=== PATIENT | male | born 1960 | race American Indian/Alaskan Native ===

== ENCOUNTER 2017-01-06 17:54 | Emergency (ER) | payer OTHER ==
[2017-01-06 18:31] VITALS: BMI 42.0
[2017-01-06 18:33] VITALS: BP 124/74; PULSE 83; RESP 20; TEMP 98.2; O2SAT 95
[2017-01-06] MEDS ORDERED: Amoxicillin-Clav 875-125 mg Tab PO STA (18:56)
[2017-01-06] MEDS ORDERED: Tmp-Smz 800 mg-160 mg DS Tab PO STA (18:56)
--- NOTE | 2017-01-06 18:57 | ED PDOC ---
Arrival/HPI - General Chief Complaint: Finger,Hand,&Wrist Time Seen by Provider: 01/06/17 18:50 Historian: Patient - History of Present Illness Narrative History of Present Illness (Text): 01/06/17 18:57 This 56 yo male with pmh dm, htn, aleksander, presents to this this ED c/o left thumb infection x 2 days. Patient stated he accidentally cut his left finger, superficially, near thumb nail. He feels thumb got infected because of that. Patient denies fever, drainage, hand cellulitis, crushing injury, or FB exposure. Patient is able to flex and extend left thumb without deficits. Patient refused x-rays Time/Duration: Other (2 days) Quality: Aching Context: Home Past Medical History - Provider Review Nursing Documentation Reviewed: Yes - Infectious Disease Hx of Infectious Diseases: None - Tetanus Immunization Tetanus Immunization: Unknown - Cardiac Hx Hypertension: Yes - Pulmonary Hx Sleep Apnea: Yes (on CPap) - Neurological Hx Neurological Disorder: No - HEENT Hx HEENT Disorder: No - Renal Hx Renal Disorder: No - Endocrine/Metabolic Hx Endocrine Disorders: Yes Hx Diabetes Mellitus Type 2: Yes - Hematological/Oncological Hx Blood Disorders: No - Integumentary Hx Dermatological Disorder: Yes - Musculoskeletal/Rheumatological Hx Musculoskeletal Disorders: Yes - Gastrointestinal Hx Gastrointestinal Disorders: No - Genitourinary/Gynecological Hx Genitourinary Disorders: Yes - Psychiatric Hx Depression: No Hx Substance Use: No - Past Surgical History Past Surgical History: No Previous - Surgical History Other/Comment: ABDOMINAL SURGERY FOR BX OF MASS. (2017) - Anesthesia Hx Anesthesia: Yes Hx Anesthesia Reactions: No Hx Malignant Hyperthermia: No - Suicidal Assessment Feels Threatened In Home Enviroment: No Family/Social History - Physician Review Nursing Documentation Reviewed: Yes Family/Social History: No Known Family HX Smoking Status: Former Smoker Hx Alcohol Use: Yes (occasional) Frequency of alcohol use: Socially Hx Substance Use: No Hx Substance Use Treatment: No Allergies/Home Meds Allergies/Adverse Reactions: Allergies No Known Allergies Allergy (Verified 10/31/16 19:28) Home Medications: Home Meds Medication Instructions Recorded Confirmed Atorvastatin Calcium [Lipitor] 10 mg PO HS 11/30/14 10/25/16 Bumetanide [Bumex] 2 mg PO DAILY 11/30/14 10/25/16 Fenofibric Acid [Fibricor] 35 mg PO DAILY 11/30/14 10/25/16 Insulin Detemir [Levemir] 45 unit SC BID 11/30/14 10/25/16 Losartan/Hydrochlorothiazide 1 tab PO DAILY 11/30/14 10/25/16 [Losartan Potassium-Hydrochlorothiazide 12.5 M] Insulin Aspart, Recombinant 40 unit SC TID 10/22/16 10/25/16 [Novolog] amLODIPine [Norvasc] 2.5 mg PO DAILY 10/22/16 10/25/16 Review of Systems - Review of Systems Constitutional: Normal. absent: Fatigue, Weight Change, Fevers Eyes: Normal ENT: Normal Respiratory: Normal. absent: SOB, Cough Cardiovascular: Normal. absent: Chest Pain, Palpitations Gastrointestinal: Normal. absent: Abdominal Pain, Nausea, Vomiting Genitourinary Male: Normal. absent: Dysuria, Frequency, Hematuria Musculoskeletal: Other (Left thumb tip infection) Skin: Normal Neurological: Normal Endocrine: Normal Hemo/Lymphatic: Normal Psychiatric: Normal Physical Exam Vital Signs Temp Pulse Resp BP Pulse Ox 01/06/17 18:32 98.2 F 83 20 124/74 95 Temperature: Afebrile Blood Pressure: Normal Pulse: Regular Respiratory Rate: Normal Appearance: Positive for: Well-Appearing, Non-Toxic, Comfortable Pain Distress: None Mental Status: Positive for: Alert and Oriented X 3 - Systems Exam Head: Present: Atraumatic, Normocephalic Pupils: Present: PERRL Extroacular Muscles: Present: EOMI Conjunctiva: Present: Normal Mouth: Present: Moist Mucous Membranes Neck: Present: Normal Range of Motion Back: Present: Normal Inspection. No: CVA Tenderness Upper Extremity: Present: Normal ROM, NORMAL PULSES, Tenderness (Mild tenderness over lateral aspect of left thumb, near nail. No abscess, or drainage noted. Thumb has FROM), Swelling (mild swelling), Neurovascularly Intact, Capillary Refill < 2s. No: Cyanosis, Edema Lower Extremity: Present: Normal Inspection, NORMAL PULSES, Normal ROM, Neurovascularly Intact, Capillary Refill < 2 s. No: Edema Neurological: Present: GCS=15, CN II-XII Intact, Speech Normal, Motor Func Grossly Intact, Normal Sensory Function, Normal Cerebellar Funct, Gait Normal Skin: Present: Warm, Dry, Normal Color. No: Rashes Psychiatric: Present: Alert, Oriented x 3 Medical Decision Making ED Course and Treatment: 01/06/17 19:09 Re-evaluation. Patient feels better. Discussed results and plan with patient who expresses understanding. All questions answered and there is agreement with the plan to discharge home with instructions. Patient stable for discharge. Return if symptoms persist or worsen. Patient refused thumb x-rays. He prefers antibiotic treatment , and he will return to emergency immediately if infection worsen. I remind him that since he is dm, infection could worsen immediately. He understood plan. Infection resemble paronychia, but no abscess to be drained at this time. Re-evaluation Time: 19:09 Reassessment Condition: Re-examined, Improved - Medication Orders Current Medication Orders: Discontinued Medications Amoxicillin/Clavulanate Potassium (Augmentin 875 Mg-125 Mg Tab) 1 tab PO STAT STA PRN Reason: Protocol Stop: 01/06/17 18:57 Trimethoprim/Sulfamethoxazole (Bactrim Ds Tab) 1 tab PO STAT STA PRN Reason: Protocol Stop: 01/06/17 18:57 Disposition/Present on Arrival - Present on Arrival Any Indicators Present on Arrival: No History of DVT/PE: No History of Uncontrolled Diabetes: Yes Urinary Catheter: No History of Decub. Ulcer: No History Surgical Site Infection Following: None - Disposition Have Diagnosis and Disposition been Completed?: Yes Diagnosis: Paronychia Disposition: HOME/ ROUTINE Disposition Time: 19:12 Patient Plan: Discharge Patient Problems: Current Active Problems Problem Status Onset Paronychia Acute Condition: GOOD Discharge Instructions (ExitCare): Paronychia (ED) Additional Instructions: Call private doctor for follow up visit in 1-2 days. Return to emergency if symptoms worsen. Do not wait too long if infection worsen, remember you are diabetic and infection could worsen within hours. Prescriptions: Amoxicillin/Clavulanate [Augmentin 875 MG-125 MG] 1 tab PO BID #20 tab Mupirocin 2% Ointment [Bactroban Ointment] 1 appl TP BID #1 tube Sulfamethoxazole/Trimethoprim [Bactrim DS 800 mg-160 mg] 1 tab PO BID #20 tab
[2017-01-06] MEDS ORDERED: TDAP Vaccine 0.5 mL Syr IM ONE (19:04)
== END 2017-01-06 19:25 | disposition home or self-care (01) ==
LOC: ED 17:54
DX: L03.012 Cellulitis of left finger (principal); Z23 Encounter for immunization

== ENCOUNTER 2017-01-09 11:40 | Emergency (ER) | payer OTHER ==
[2017-01-09 11:40] VITALS: BMI 42.0
[2017-01-09 11:58] VITALS: BP 130/77; PULSE 78; RESP 16; TEMP 98.4
--- NOTE | 2017-01-09 12:13 | ED PDOC ---
Arrival/HPI - General Chief Complaint: Abnormal Skin Integrity Time Seen by Provider: 01/09/17 12:03 Historian: Patient - History of Present Illness Narrative History of Present Illness (Text): 01/09/17 12:10 56yo male with PMHx of hypertension, Diabetes who present to ED for complaint of left thumb infection. He notes that he was was seen here on 01/06/17 for same complaint and was placed on antibiotics. States he started taking the medication still noticed swelling of the thumb. States he noticed very mild redness and was concerned. he otherwise denies fever, chills, neurological deficit, any other complaint. Past Medical History - Provider Review Nursing Documentation Reviewed: Yes - Infectious Disease Hx of Infectious Diseases: None - Tetanus Immunization Tetanus Immunization: Unknown - Cardiac Hx Hypertension: Yes - Pulmonary Hx Sleep Apnea: Yes (on CPap) - Neurological Hx Neurological Disorder: No - HEENT Hx HEENT Disorder: No - Renal Hx Renal Disorder: No - Endocrine/Metabolic Hx Endocrine Disorders: Yes Hx Diabetes Mellitus Type 2: Yes - Hematological/Oncological Hx Blood Disorders: No - Integumentary Hx Dermatological Disorder: Yes - Musculoskeletal/Rheumatological Hx Musculoskeletal Disorders: Yes - Gastrointestinal Hx Gastrointestinal Disorders: No - Genitourinary/Gynecological Hx Genitourinary Disorders: Yes - Psychiatric Hx Depression: No Hx Substance Use: No - Past Surgical History Past Surgical History: No Previous - Surgical History Other/Comment: ABDOMINAL SURGERY FOR BX OF MASS. (2017) - Anesthesia Hx Anesthesia: Yes Hx Anesthesia Reactions: No Hx Malignant Hyperthermia: No - Suicidal Assessment Feels Threatened In Home Enviroment: No Family/Social History - Physician Review Nursing Documentation Reviewed: Yes Family/Social History: Unknown Family HX Smoking Status: Former Smoker Hx Alcohol Use: Yes (occasional) Hx Substance Use: No Hx Substance Use Treatment: No Allergies/Home Meds Allergies/Adverse Reactions: Allergies No Known Allergies Allergy (Verified 01/09/17 11:51) Home Medications: Home Meds Medication Instructions Recorded Confirmed Atorvastatin Calcium [Lipitor] 10 mg PO HS 11/30/14 01/09/17 Bumetanide [Bumex] 2 mg PO DAILY 11/30/14 01/09/17 Fenofibric Acid [Fibricor] 35 mg PO DAILY 11/30/14 01/09/17 Insulin Detemir [Levemir] 45 unit SC BID 11/30/14 01/09/17 Losartan/Hydrochlorothiazide 1 tab PO DAILY 11/30/14 01/09/17 [Losartan Potassium-Hydrochlorothiazide 12.5 M] Insulin Aspart, Recombinant 40 unit SC TID 10/22/16 01/09/17 [Novolog] amLODIPine [Norvasc] 2.5 mg PO DAILY 10/22/16 01/09/17 Review of Systems - Physician Review All systems were reviewed & negative as marked: Yes - Review of Systems Constitutional: Normal Eyes: Normal ENT: Normal Respiratory: Normal Cardiovascular: Normal Gastrointestinal: Normal Genitourinary Male: Normal Musculoskeletal: Arthralgias (LEft thumb pain/infection) Skin: Normal Neurological: Normal Endocrine: Normal Hemo/Lymphatic: Normal Psychiatric: Normal Physical Exam Vital Signs Reviewed: Yes Vital Signs Temp Pulse Resp BP 01/09/17 11:54 98.4 F 78 16 130/77 Temperature: Afebrile Blood Pressure: Normal Pulse: Regular Respiratory Rate: Normal Appearance: Positive for: Well-Appearing, Non-Toxic, Comfortable Pain Distress: None Mental Status: Positive for: Alert and Oriented X 3 - Systems Exam Head: Present: Atraumatic, Normocephalic Pupils: Present: PERRL Extroacular Muscles: Present: EOMI Conjunctiva: Present: Normal Mouth: Present: Moist Mucous Membranes Neck: Present: Normal Range of Motion Respiratory/Chest: Present: Clear to Auscultation, Good Air Exchange. No: Respiratory Distress, Accessory Muscle Use Cardiovascular: Present: Regular Rate and Rhythm, Normal S1, S2. No: Murmurs Abdomen: Present: Normal Bowel Sounds. No: Tenderness, Distention, Peritoneal Signs Back: Present: Normal Inspection Upper Extremity: Present: Normal ROM, NORMAL PULSES, Tenderness, Swelling ( surrounding left thumb nail), Erythema (Very mild small area noted on lateral base of left thumb), Neurovascularly Intact, Capillary Refill < 2s. No: Cyanosis, Edema, Temperature Abnormalties, Deformity Lower Extremity: Present: Normal Inspection. No: Edema Neurological: Present: GCS=15, CN II-XII Intact, Speech Normal Skin: Present: Warm, Dry, Normal Color, Abscess (noted on the base on left thumb nail). No: Rashes Psychiatric: Present: Alert, Oriented x 3, Normal Insight, Normal Concentration Medical Decision Making ED Course and Treatment: 01/09/17 17:54 PT was afebrile and in no distress in ED. Paronychia was incised and pus drained in ED. Pt was advised to continue with abx as was directed. Referred to his PMD. TRT ED for any new or worsening symptoms. Disposition/Present on Arrival - Present on Arrival Any Indicators Present on Arrival: No History of DVT/PE: No History of Uncontrolled Diabetes: Yes Urinary Catheter: No History of Decub. Ulcer: No History Surgical Site Infection Following: None - Disposition Have Diagnosis and Disposition been Completed?: Yes Diagnosis: Paronychia Disposition: HOME/ ROUTINE Disposition Time: 12:20 Patient Plan: Discharge Condition: STABLE Discharge Instructions (ExitCare): Paronychia (ED) Additional Instructions: Follow up with your doctor Return to ED for fever, redness, worsening symptoms [place]errals: [facility] [place] [facility] [place] - Follow up with primary - Incision & Drainage Of Abscess Anesthesia: Lidocaine 1% (5ml) Prep Used: Betadine Procedure: Incised W/Scalpel Blade#: (11), Drained Pus
== END 2017-01-09 12:34 | disposition home or self-care (01) ==
LOC: ED 11:40
DX: L03.012 Cellulitis of left finger (principal)